=== PATIENT | female | born 1985 | race Caucasian/White ===

== ENCOUNTER 2020-12-07 12:21 | Outpatient (CLI) | payer BC ==
[~2020-12-07 12:21] MED LIST: ALYACEN PO; BUSPAR 10MG10 MG PO; CYANOCOBAL1000 MCG/1 INJ; KEFLEX CAP 500500 MG PO; PROTONIX40 MG PO; VITAMIN D250000 UNIT PO
[2020-12-07] MEDS ORDERED: MACROBID 100 M100 MG PO (14:39)
[2021-01-24] MEDS ORDERED: IBUPROFEN800 MG PO (10:26)
[2021-01-24] MEDS ORDERED: PERCOCET 10-321 EACH PO (10:26)
[2021-01-24] MEDS ORDERED: COLACE100 MG PO (10:26)
[2021-01-24] MEDS ORDERED: HEMOCYTE324 MG PO (10:26)
== END 2020-12-07 15:00 | disposition home or self-care (01) ==
LOC: GENOP 12:21
DX: O42.913 Preterm premature rupture of membranes, unspecified as to length of time between rupture and onset of labor, third trimester (principal); O26.893 Other specified pregnancy related conditions, third trimester; R10.2 Pelvic and perineal pain; K58.9 Irritable bowel syndrome, unspecified; K21.9 Gastro-esophageal reflux disease without esophagitis; Z3A.32 32 weeks gestation of pregnancy
CPT/HCPCS: 81001; 82731; 83518; 87086; 87210; 96360; 96361; J7120

== ENCOUNTER 2021-01-23 13:12 | Outpatient (CLI) | payer BC ==
[~2021-01-23 13:12] MED LIST changes: +MACROBID 100 M100 MG PO
[2021-01-23 14:04] LABS: HEMOGLOBIN 12.3 gm/dl (12.3-15.3); RED BLOOD COUNT 4.23 M/UL (4.00-5.10); WHITE BLOOD COUNT 12.4 K/UL (4.5-11.0)
[2021-01-24] MEDS ORDERED: PERCOCET 10-321 EACH PO (10:26)
[2021-01-24] MEDS ORDERED: HEMOCYTE324 MG PO (10:26)
[2021-01-24] MEDS ORDERED: IBUPROFEN800 MG PO (10:26)
[2021-01-24] MEDS ORDERED: COLACE100 MG PO (10:26)
== END 2021-01-23 14:18 | disposition home or self-care (01) ==
LOC: GENOP 13:12
PROVIDERS: Obstetrics & Gynecology
DX: Z01.812 Encounter for preprocedural laboratory examination (principal); O34.219 Maternal care for unspecified type scar from previous cesarean delivery; N85.8 Other specified noninflammatory disorders of uterus
CPT/HCPCS: 36415; 81001; 85025

== ENCOUNTER → 2021-12-11 | Outpatient (CLI) | payer BC, OTHER ==
[~2021-12-11] MED LIST changes: +COLACE100 MG PO; +HEMOCYTE324 MG PO; +IBUPROFEN800 MG PO; +PERCOCET 10-321 EACH PO
[2021-12-11 16:57] LABS: RED BLOOD COUNT 4.39 M/UL (4.00-5.10); WHITE BLOOD COUNT 12.5 K/UL (4.5-11.0)
[2021-12-11 17:25] LABS: BUN/CREATININE RATIO 10 (0-10)
[2021-12-13 07:11] LABS: VITAMIN D, 25-HYDROXY 40.8 ng/mL (30.0-100.0)
[2021-12-13 10:12] LABS: ANTISTREPTOLYSIN O AB 69.5 IU/mL (0.0-200.0); RHEUMATOID ARTHRITIS FACTOR <10.0 IU/mL (<14.0)
== END ==
LOC: RAD 16:05
PROVIDERS: Nurse Practitioner Family
DX: R10.9 Unspecified abdominal pain (principal); R14.0 Abdominal distension (gaseous); R07.9 Chest pain, unspecified; R19.7 Diarrhea, unspecified; R31.9 Hematuria, unspecified; R06.02 Shortness of breath; Z00.00 Encounter for general adult medical examination without abnormal findings; R53.83 Other fatigue; R00.2 Palpitations
CPT/HCPCS: 36415; 71046; 74018; 80053; 81001; 82550; 82552; 82607; 82728; 83540; 83550; 83615; 83625; 84439; 84443; 84484; 84550; 85025; 85652; 86038; 86060; 86141; 86431; 87086

== ENCOUNTER → 2021-12-28 | Outpatient (CLI) | payer BC, OTHER | LOC: KOH-I 10:48 | DX: R19.7 Diarrhea, unspecified (principal); R07.9 Chest pain, unspecified; R14.0 Abdominal distension (gaseous); R10.11 Right upper quadrant pain | CPT/HCPCS: 76705 ==

== ENCOUNTER → 2022-01-29 | Outpatient (CLI) | payer BC, OTHER ==
[~2022-01-29] MED LIST changes: +ACYCLOVIR400 MG PO; +ASPIRIN81 MG PO; +FAMOTIDINE20 MG PO; +ONDANSETRON HCL4 MG PO; +PROZAC20 MG PO; +ULTRAM50 MG PO
== END ==
LOC: NM 08:21
DX: R10.13 Epigastric pain (principal); R14.0 Abdominal distension (gaseous); R19.8 Other specified symptoms and signs involving the digestive system and abdomen; K59.00 Constipation, unspecified; R19.7 Diarrhea, unspecified; K20.90 Esophagitis, unspecified without bleeding; K21.9 Gastro-esophageal reflux disease without esophagitis; K58.9 Irritable bowel syndrome, unspecified; R11.2 Nausea with vomiting, unspecified
CPT/HCPCS: 78264; A9541